=== PATIENT | female | born 1985 | race Caucasian/White ===

== ENCOUNTER 2016-04-13 05:15 | Inpatient (IN) | payer OTHER ==
[~2016-04-13] VITALS: Ht 154.9 cm; Wt 71.7 kg
[2016-04-13] MEDS ORDERED: OXYTOCIN 20 UNITS/LR PREMIX 1,000 ML IV SCH (06:15)
[2016-04-13] MEDS ORDERED: LACTATED RINGERS 1,000 ML IV SCH (06:15)
[2016-04-13] MEDS ORDERED: OXYTOCIN 10 UNITS/ML VIAL IM SCH (06:15)
[2016-04-13] MEDS ORDERED: NALBUPHINE HYDROCHLORIDE 10 MG/ML VIAL IVP PRN (06:15)
[2016-04-13] MEDS ORDERED: MISOPROSTOL 25 MCG TAB VG PRN (06:25)
[2016-04-13] MEDS ORDERED: PROMETHAZINE 25 MG/ML VIAL IVP SCH (07:00)
[2016-04-13] MEDS ORDERED: LACTATED RINGERS 500 ML IV SCH (07:00)
[2016-04-13] MEDS ORDERED: PRENATAL MULTI1 EAC2 PO (07:16)
[2016-04-13] MEDS ORDERED: INFLUENZA VIRUS VACCINE QUAD 0.5 ML SYR IMVAC ONE (07:20)
[2016-04-13 07:21] VITALS: BP 130/72
--- NOTE | 2016-04-13 07:50 | NUR ---
PATIENT HAS BEEN SCREENED AND CATEGORIZED LOW NUTRITION RISK. PATIENT WILL BE SEEN WITHIN 7 DAYS OF ADMISSION. 04/19/[address]
[2016-04-13] MEDS ORDERED: MISOPROSTOL 25 MCG TAB ONE ×2 (08:28→12:34)
[2016-04-13] MEDS ORDERED: OXYTOCIN 10 UNITS/ML VIAL ONE (12:34)
[2016-04-13] MEDS ORDERED: PROMETHAZINE 25 MG/ML VIAL ONE (15:52)
[2016-04-13] MEDS ORDERED: MORPHINE SULFATE 10 MG/ML SYR ONE (15:53)
[2016-04-13] MEDS ORDERED: OXYTOCIN 20 UNITS/LR PREMIX 1,000 ML IV ONE (16:52)
[2016-04-13] MEDS ORDERED: HYDROcodone/APAP 5/325 MG 1 TAB TAB PO PRN (19:40)
[2016-04-13] MEDS ORDERED: IBUPROFEN 800 MG TAB PO PRN (19:40)
[2016-04-13] MEDS ORDERED: BENZOCAINE/MENTHOL 20%-0.5% 60 GM CAN TP PRN (19:40)
[2016-04-13] MEDS ORDERED: oxyCODONE/APAP 5/325 MG 1 TAB TAB PO PRN (19:40)
[2016-04-13] MEDS ORDERED: WITCH HAZEL 40 PAD PACKAGE TP PRN (19:40)
[2016-04-13] MEDS ORDERED: TEMAZEPAM 15 MG CAP PO PRN (19:40)
[2016-04-13] MEDS ORDERED: MEASLES, MUMPS, AND RUBELLA 1 VIAL SQVAC PRN (19:40)
[2016-04-13] MEDS ORDERED: DOCUSATE SOD/SENNA 50/8.6 MG 1 TAB PO SCH (21:00)
[2016-04-14] MEDS: INFLUENZA VIRUS VACCINE QUAD 0.5 ML SYR IMVAC SCH ×2 (21:25→21:53)
[2016-04-15] MEDS ORDERED: MOTRIN600 MG PO (10:46)
== END 2016-04-15 12:15 | disposition home or self-care (01) | DRG 560 ==
LOC: MLD 05:15 → MFCC 23:03
PROVIDERS: ADMIT Obstetrics & Gynecology; ATTEND Obstetrics & Gynecology
PROC: 10E0XZZ Delivery of Products of Conception, External Approach (ICD-10-PCS; principal; 2016-04-13)
PROC: 10907ZC Drainage of Amniotic Fluid, Therapeutic from Products of Conception, Via Natural or Artificial Opening (ICD-10-PCS; 2016-04-13)
DX: O69.1XX0 Labor and delivery complicated by cord around neck, with compression, not applicable or unspecified (principal); O76 Abnormality in fetal heart rate and rhythm complicating labor and delivery; O70.0 First degree perineal laceration during delivery; Z3A.39 39 weeks gestation of pregnancy; Z37.0 Single live birth